=== PATIENT | female | born 1965 | race Caucasian/White ===

== ENCOUNTER → 2024-08-20 | Outpatient (CLI) | payer OTHER ==
--- NOTE | 2024-08-20 14:30 | US ---
EXAMINATION TYPE: US thyroid st tissue head/neck DATE OF EXAM: 08/20/2024 COMPARISON: NONE CLINICAL INDICATION: Female, 59 years old with history of E03.9 HYPOTHYROIDISM, UNSPECIFIED; On thyro id meds. TECHNIQUE: Grayscale and color Doppler imaging of the thyroid gland. FINDINGS: GLAND SIZE: Right Lobe: 5.2 x 2.0 x 2.4 cm Overall Parenchyma: heterogeneous Left Lobe: 5.4 x 2.8 x 2.4 cm Overall Parenchyma: heterogeneous Isthmus Thickness: 1.1 cm NODULES RIGHT: # of nodules measured on right: 0 LEFT: # of nodules measured on left: 0 ISTHMUS: # of nodules measured in the isthmus: 0 Bilateral neck scanned. Left lateral lymph node short axis measurement = 0.6 cm with cortical thickn ess= 2.6 mm. Diffusely heterogenous hypoechoic appearance of the thyroid parenchyma with marked increased vascular ity. Left lateral neck lymph node with central fatty hilum demonstrated benign morphology. IMPRESSION: 1. Prominent size diffuse heterogenous thyroid gland with increased vascularity. Correlate for thyroi ditis. No discrete nodule. 2. Prominent left lateral neck benign-appearing lymph node which is likely reactive. [facility], , 08/20/2024 2:28 PM
== END | disposition home or self-care (01) ==
LOC: RADUSWWP 13:50
PROVIDERS: ATTEND Internal Medicine
DX: E03.9 Hypothyroidism, unspecified (principal)
CPT/HCPCS: 76536